=== PATIENT | male | born 1970 | race Two or more races ===

== ENCOUNTER 2018-05-10 20:31 | Emergency (ER) | payer SELFPAY ==
[~2018-05-10] VITALS: Ht 160 cm; Wt 71.7 kg
[2018-05-10] MEDS ORDERED: IBUPROFEN600 MG ORAL (21:17)
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
[2018-05-10 21:27] VITALS: BP 150/102
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
[2018-05-10 22:00] VITALS: BP 150/102
--- NOTE | 2018-05-10 22:01 | NUR ---
ER Nurse Note: Pt seen, treated, medically cleared by MD for discharge. Discharge instructions and prescriptions given with repeat verbalization by son and family members. Instructed pt to follow up with primary care provider within one week. Pt a&ox4, VSS, no signs of distress. ID band removed. Pt left with son and all belongings.
--- NOTE | 2018-05-11 10:53 | Diagnostic Imaging Report ---
Indication: Headache and head trauma Technique: Contiguous 5 mm thick transaxial imaging of the head obtained in a Siemens Sensation [address] scanner. Soft tissue and bone windows generated. Automatic Exposure Control was utilized. Total Dose length Product (DLP): 1369.[address] Dose Index Volume (CTDIvol): 70.38 mGy Comparison: none Findings: The size and configuration of the cortical sulci, basal cisterns, and ventricles are within normal limits for age. There is no mass effect, midline shift, or edema identified. There is no evidence of acute hemorrhage or abnormal intra-axial or extra-axial fluid collections. The bones and soft tissues are unremarkable. Fluid retention cyst partially visualized in the lower part of the right maxillary sinus. Some mucosal thickening within paranasal sinuses noted. Impression: No mass effect, edema or acute bleed. Sinus disease. [facility] has communicated the preliminary results to the Emergency Department. Their findings are largely concordant with this report. The CT scanner at [facility] is accredited by the [employer] and the scans are performed using dose optimization techniques as appropriate to a performed exam including Automatic Exposure control.
--- NOTE | 2018-05-11 11:59 | Diagnostic Imaging Report ---
Indication: Pain Knee pain/trauma 3 views of the right knee were obtained. Findings: No acute fracture, malalignment, or joint effusion are identified. Joint space is relatively well-maintained. Impression: Negative for acute findings.
--- NOTE | 2018-05-11 12:00 | Diagnostic Imaging Report ---
Indication: Knee Pain 3 views of the left knee were obtained. Findings: No acute fracture, malalignment, or joint effusion are identified. Joint space is relatively well-maintained. There is soft tissue swelling in the prepatellar region. Impression: No acute fracture. Prepatellar soft tissue swelling
== END 2018-05-10 22:02 | disposition home or self-care (01) ==
LOC: EMR 21:07
DX: S09.90XA Unspecified injury of head, initial encounter (principal); S80.212A Abrasion, left knee, initial encounter; S80.211A Abrasion, right knee, initial encounter; V03.99XA Pedestrian with other conveyance injured in collision with car, pick-up truck or van, unspecified whether traffic or nontraffic accident, initial encounter; Y92.414 Local residential or business street as the place of occurrence of the external cause
CPT/HCPCS: 70450; 99284